=== PATIENT | female | born 2005 | race Two or more races ===

== ENCOUNTER 2025-04-01 17:01 | Emergency (ER) | payer OTHER, SELFPAY ==
[2025-04-01 17:13] VITALS: BP 119/81; PULSE 84; RESP 18; TEMP 37.4; O2SAT 100
[2025-04-01 17:26] LABS: EDUAAPPEAR Clear; EDUABILI Negative (Negative); EDUABLOOD Negative (Negative); EDUACOLOR1 Yellow; EDUAGLUCOSE Negative (Negative); EDUAKETONE Negative (Negative); EDUALEUKO Trace (Negative); EDUANITRATE Negative (Negative); EDUAPH 6.0; EDUAPROTEIN Negative (Negative); EDUASPGRAVITY 1.005; EDUAUROBILI 0.2
[2025-04-01 17:40] LABS: BEDSIDEPREGUCG Negative (Negative)
--- NOTE | 2025-04-01 17:42 | ED.ABDPAIN ---
HPI - Abdominal Pain General Chief Complaint: Abdominal Pain Stated Complaint: Side Pain Time Seen by Provider: 04/01/25 17:20 Source: patient and RN notes reviewed Mode of arrival: ambulatory Limitations: no limitations History of Present Illness HPI narrative: 19-year-old female presents Express Care complaining of right lower abdominal pain and fevers for approximately 5 days. Patient also reports nausea but no vomiting. Patient says she had a fever as high as 101 since been taken Tylenol and ibuprofen to help with the fevers. Patient denies any urinary symptoms, bloody urine, vaginal discharge, vaginal bleeding, pelvic pain, or any concerns for STDs. Patient says she has a history of appendectomy at the age of 7. Patient denies any chance of . Patient denies any cough or upper respiratory symptoms. Related Data Home Medications ?Medication ?Instructions ?Recorded ?Confirmed ?Last Taken ?Type No Home Medications 04/01/25 04/01/25 Unknown History Allergies Allergy/AdvReac Type Severity Reaction Status Date / Time No Known Allergies Allergy Verified 04/01/25 17:15 Review of Systems Review of Systems: CONSTITUTIONAL: Positive for fevers, negative for chills, or sweats. EYES: Denies visual changes, redness, or discharge. ENT: Denies rhinorrhea, congestion, sore throat, or otalgia. CARDIOVASCULAR: Denies chest pain, palpitations, or edema. RESPIRATORY: Denies cough or dyspnea. GASTROINTESTINAL: Positive for abdominal pain, nausea. Negative for vomiting, or diarrhea. GENITOURINARY: Denies dysuria, vaginal discharge, pelvic pain, vaginal bleeding, or hematuria. SKIN: Denies rash or itching. MUSCULOSKELETAL: Denies back pain, joint pain, or myalgia. NEUROLOGIC: Denies headache, numbness, or weakness. PSYCHIATRIC: Denies anxiety or depression. All other systems reviewed are negative, except as documented in HPI. PMFSH Comments At the time of my signature, I reviewed and agree with the nursing past medical, surgical, social, and family history. There is no relevant family history pertinent to the patient complaint. Exam Narrative: GENERAL: This is a well-nourished, well-developed adult, in no apparent distress. They are non ill-appearing, nontoxic appearing. HEAD: normocephalic, atraumatic. EYES: Sclera clear/white. Conjunctiva normal. Vision is grossly intact. Extraocular movements intact EARS: External ears normal. Hearing grossly intact. NOSE: External nose normal THROAT: Mucous membranes moist, Uvula midline. NECK: Neck supple, CARDIOVASCULAR: Regular rate and rhythm without murmurs, gallops, or rubs. RESPIRATORY: Clear to auscultation. Breath sounds equal bilaterally. No wheezes, rales, or rhonchi. GASTROINTESTINAL: Abdomen soft, tenderness to palpation to the right lower quadrant, nondistended. Bowel sounds are active. No hepato-splenomegaly, or palpable masses. No guarding or rigidity. No rebound tenderness. SKIN: warm, Dry, intact with no suspicious lesions or rash, good texture and turgor. NEURO: awake, alert, and oriented to person, place and time. There were no obvious focal neurologic abnormalities. EXTREMITIES: No joint tenderness, effusion, or edema noted. BACK: Nontender without deformity. No CVA tenderness. Course Course Emergency Course: Portions of this record may have been created with voice recognition software Level of Care: Express Care Visit Vital Signs Vital signs: Vital Signs Temperature 99.3 F 04/01/25 17:13 Pulse Rate 84 04/01/25 17:13 Respiratory Rate 18 04/01/25 17:13 Blood Pressure 119/81 04/01/25 17:13 Pulse Oximetry 100 04/01/25 17:13 Temperature 99.3 F 04/01/25 17:13 Pulse Rate 84 04/01/25 17:13 Respiratory Rate 18 04/01/25 17:13 Blood Pressure 119/81 04/01/25 17:13 Pulse Oximetry 100 04/01/25 17:13 Reviewed Transfer Transfered to: [facility] Transportation: Other (Private vehicle) Transfer rationale: Unexplained fevers, right lower abdominal pain, nausea, requiring higher level care Accepting physician: Dr. King MDM - Abdominal Pain MDM Narrative Medical decision making narrative: Patient may be having a rivas fever. Urine dipstick 1+ leukocytes however patient is having no urinary symptoms, no CVA tenderness, no suprapubic pain, no dysuria. Symptoms are not consistent with UTI. Urine test is negative. Patient has a history of an appendectomy. Given patient's symptoms, it is recommend the patient seek a higher level care and proceed immediately to the emergency department. Patient is agreeable [facility]. Called over to [facility] spoke to Dr. King who is wear this patient accepted the patient for transfer. Patient advised to remain NPO proceed immediately to the ER. Patient to go by POV with significant other. Patient hemodynamically stable for transfer. Differential Diagnosis Differential diagnosis: Likely diverticulitis and other (Ovarian cyst, ectopic , pelvic inflammatory disease, renal stone, pyelonephritis) Lab Data Attestation: I reviewed the patient's lab results. Labs: Lab Results 04/01/25 04/01/25 Range/Units 17:24 17:39 POC Urine Color Yellow POC Urine Clarity Clear POC Urine pH 6.0 POC Ur Specif [place] 1.005 POC Urine Protein Negative (Negative) POC Ur Glucose (UA) Negative (Negative) POC Urine Ketones Negative (Negative) POC Urine Blood Negative (Negative) POC Urine Nitrite Negative (Negative) POC Urine Bilirubin Negative (Negative) POC Urine Urobilinogen 0.2 POC U Leukocyte Esteras Trace (Negative) POC Urine HCG, Qual Negative (Negative) Critical Care Time Critical Care Time Critical Care Time: No Discharge Plan Discharge Clinical Impression: Right lower quadrant abdominal pain Fever Qualifiers: Fever type: unspecified Qualified Code(s): R50.9 - Fever, unspecified Patient Disposition: Acute Care Hospital Condition: Stable Patient Language: Haitian Prescriptions: No Action No Home Medications Follow-up/Referrals: PHYSICIAN,OILSEED MEAT PRESSER [Primary Care Provider] - Time of Disposition: 17:39
== END 2025-04-01 17:53 | disposition short-term general hospital (02) ==
DX: R10.31 Right lower quadrant pain (principal); R50.9 Fever, unspecified
CPT/HCPCS: 81003; 81025; 99212; G0463

== ENCOUNTER 2025-04-01 17:58 | Emergency (ER) | payer OTHER, SELFPAY ==
--- NOTE | ~2025-04-01 | CT_ITS ---
CT abdomen pelvis w con Ordering provider: Gian Styles MD History: 19 years Female with . RLQ PAIN . Comparison: None. Technique: CT abdomen and pelvis with IV and without oral contrast. Automated exposure control and it erative reconstruction technique were employed. The dose-length product was 178.02 mGy-cm. 100 mL Omn ipaque 350 was given IV. Findings: VISUALIZED LOWER CHEST: Normal. UPPER ABDOMINAL ORGANS: Liver: Normal. Gallbladder: Normal. Spleen: Normal. Stomach/duodenum: Normal. Pancreas: Normal. Adrenals: Normal. Kidneys: Hypodensity seen in the right kidney upper pole posteriorly and lower pole anteriorly which may indicate pyelonephritis. Slightly dilated right renal pelvicalyceal system with enhancement of the wall of the renal pelvis an d ureter suggestive of ascending infection. PELVIC ORGANS: The bladder is normal. Uterus: Normal. Right ovarian cyst measuring 1.7 cm. BOWEL AND MESENTERY: Colon: No evidence of diverticulitis. No evidence of appendicitis. Small Bowel: Normal. No obstruction. Peritoneum/mesentery: No free air or free fluid. No mesenteric lymphadenopathy. RETROPERITONEUM: Normal aorta. No retroperitoneal lymphadenopathy. MUSCULOSKELETAL: Superficial soft tissues: The superficial soft tissues are normal. Bones: Normal. Complex spine. IMPRESSION: 1. No evidence of appendicitis, diverticulitis or intestinal obstruction. 2. Ascending pyelonephritis seen on the right side. Clinical correlation and follow-up advised. 3. Right ovarian cyst measuring 2.7 cm. Reviewed, dictated and finalized at location A. IMPRESSION: 1. No evidence of appendicitis, diverticulitis or intestinal obstruction. 2. Ascending pyelonephritis seen on the right side. Clinical correlation and f ollow-up advised. 3. Right ovarian cyst measuring 2.7 cm.
[2025-04-01 18:06] VITALS: BP 110/75; PULSE 87; RESP 16; TEMP 37; O2SAT 100
[2025-04-01 20:40] VITALS: BP 119/85; PULSE 91; RESP 16; TEMP 36.6; O2SAT 100
[2025-04-01 20:51] LABS: Hematocrit 38.5 % (37.0-47.0); Hemoglobin 12.2 g/dL (12.0-15.0); Immature Granulocyte Percent A 0.4 % (0-0.5); Lymphocytes Absolute Auto 1.76 K/mm3 (0.9-3.2); Mean Corpuscular HGB Conc 31.7 g/dl (32-36); Mean Corpuscular Hemoglobin 28.0 pg (26-34); Mean Corpuscular Volume 88.5 fl (80-100); Nucleated Red Blood Cells Absolute Auto 0.000 K/mm3 (0.0-0.012); Nucleated Red Blood Cells Perc 0.0 % (0.0-0.2); Platelet Count Result 299 k/mm3 (150-375); Red Blood Count 4.35 M/mm3 (4.2-5.4); White Blood Count 10.8 K/mm3 (4.5-10.0)
[2025-04-01 20:59] LABS: SPREG INTERNAL CONTROL Positive; Serum Qual hCG Negative
[2025-04-01 21:03] LABS: Alanine Aminotransferase 16 U/L (6-35); Albumin Level 4.5 g/dL (3.5-5.1); Alkaline Phosphatase 51 U/L (38-126); Anion Gap 12 mmol/L (4-12); Aspartate Amino Transferase 33 U/L (14-36); Bilirubin,Total 0.4 mg/dL (0.2-1.3); Blood Urea Nitrogen 6 mg/dL (7-17); Calcium 9.2 mg/dL (8.4-10.2); Carbon Dioxide 25 mmol/L (22-30); Chloride 102 mmol/L (98-107); Estimated Glomerular Filt Rate > 60; Glucose 97 mg/dL (65-110); Lipase 144 U/L (23-300); Magnesium 2.2 mg/dL (1.6-2.3); Potassium 4.4 mmol/L (3.4-5.0); Sodium 139 mmol/L (137-145); Total Protein 8.9 g/dL (6.3-8.2)
--- NOTE | 2025-04-01 22:12 | ED.ABDPAIN ---
HPI - Abdominal Pain General Chief Complaint: Abdominal Pain Stated Complaint: r sided abd pain Time Seen by Provider: 04/01/25 22:05 Source: patient Mode of arrival: ambulatory Limitations: no limitations History of Present Illness HPI narrative: This is a 19-year-old female that presents to the emergency department for right mid abdominal pain. Ongoing over the last couple of days. No associated symptoms. Denies fevers, vomiting, diarrhea, dysuria, hematuria. Related Data Allergies Allergy/AdvReac Type Severity Reaction Status Date / Time No Known Allergies Allergy Verified 04/01/25 17:15 Review of Systems Review of Systems: All systems reviewed & are unremarkable except as noted in HPI and below PMFSH Surgical History Surgical History (Updated 04/01/25 @ 22:13 by Kaylee Mason PA-C) History of appendectomy Exam Narrative: GENERAL: Well-appearing, well-nourished, and in no acute distress. HEAD: Normocephalic, atraumatic. EYES: EOMI. CHEST: Clear to auscultation. No respiratory distress. No wheezes rales or rhonchi HEART: Regular rate and rhythm. No murmur heard. Normal peripheral pulses. ABDOMEN: Soft, nondistended, normal active bowel sounds. Mild tenderness to palpation in the right mid abdomen, without guarding EXTREMITIES: Normal range of motion. No edema. SKIN: Warm, dry, no rash. NEURO: No focal deficits. Alert and oriented x3. PSYCH: Normal mood and affect Course Course Emergency Course: patient updated on workup and agrees with plan of care Vital Signs Vital signs: Vital Signs Temperature 98.6 F 04/01/25 18:06 Pulse Rate 87 04/01/25 18:06 Respiratory Rate 16 04/01/25 18:06 Blood Pressure 110/75 04/01/25 18:06 Pulse Oximetry 100 04/01/25 18:06 Temperature 97.9 F 04/01/25 20:40 Pulse Rate 91 04/01/25 20:40 Respiratory Rate 16 04/01/25 20:40 Blood Pressure 119/85 04/01/25 20:40 Pulse Oximetry 100 04/01/25 20:40 MDM - Abdominal Pain MDM Narrative Medical decision making narrative: Patient presents the emergency department for right-sided abdominal pain. She is afebrile and nontoxic appearing. Her vitals are stable. CBC with mild leukocytosis to 10.8. Metabolic panel without concerning findings. Urine with evidence of infection. test is negative. CT abdomen and pelvis shows findings of pyelonephritis. Right ovarian cyst. Patient was updated on her workup and agrees with plan of care. Will be given 1st dose of antibiotics IV. Continued on oral antibiotics, she was given warnings to return to the ER Differential Diagnosis Differential diagnosis: Likely calculus of kidney, constipation, diverticulitis and other (pyelonephritis) Lab Data Attestation: I reviewed the patient's lab results. 04/01/25 20:44 04/01/25 20:44 Labs: Lab Results 04/01/25 04/01/25 04/01/25 Range/Units 20:44 22:16 22:32 WBC 10.8 H (4.5-10.0) K/mm3 RBC 4.35 (4.2-5.4) M/mm3 Hgb 12.2 (12.0-15.0) g/dL Hct 38.5 (37.0-47.0) % MCV 88.5 (80-100) fl MCH 28.0 (26-34) pg MCHC 31.7 L (32-36) g/dl RDW 12.2 (11.5-14.5) % Plt Count 299 (150-375) k/mm3 MPV 9.1 (7.4-10.4) fl Immature Gran % (Auto) 0.4 (0-0.5) % Neut % (Auto) 70.3 (45.5-73.1) % Lymph % (Auto) 16.3 L (18.3-44.2) % [place] % (Auto) 12.0 H (2.6-8.5) % Eos % (Auto) 0.5 (0-4.4) % Baso % (Auto) 0.5 (0.2-1.2) % Lymph # (Auto) 1.76 (0.9-3.2) K/mm3 [place] # (Auto) 1.3 H (0.1-0.6) K/mm3 Eos # (Auto) 0.1 (0-0.3) K/mm3 Baso # (Auto) 0.1 (0.0-0.1) K/mm3 Abs Immat Gran (auto) 0.04 H (0.00-0.031) K/mm3 Absolute Neuts (auto) 7.6 H (1.3-6.7) K/mm3 Absolute Nucleated RBC 0.000 (0.0-0.012) K/mm3 Nucleated RBC % 0.0 (0.0-0.2) % Sodium 139 (137-145) mmol/L Potassium 4.4 (3.4-5.0) mmol/L Chloride 102 (98-107) mmol/L Carbon Dioxide 25 (22-30) mmol/L Anion Gap 12 (4-12) mmol/L BUN 6 L (7-17) mg/dL Creatinine 0.57 L (0.7-1.0) mg/dL Estim Creat Clear Calc Not Reportable Estimated GFR > 60 (59 - ) Glucose 97 (65-110) mg/dL Calcium 9.2 (8.4-10.2) mg/dL Magnesium 2.2 (1.6-2.3) mg/dL Total Bilirubin 0.4 (0.2-1.3) mg/dL AST 33 (14-36) U/L ALT 16 (6-35) U/L Alkaline Phosphatase 51 (38-126) U/L Total Protein 8.9 H (6.3-8.2) g/dL Albumin 4.5 (3.5-5.1) g/dL Lipase 144 (23-300) U/L Serum HCG, Qual Negative Urine Color Yellow (Yellow) Urine Appearance Clear (Clear) Urine pH 5.5 (5.0-9.0) Ur Specific [place] > 1.045 H (1.001-1.035) Urine Protein 1+ H (Negative) mg/dL Urine Glucose (UA) Negative (Negative) mg/dL Urine Ketones Trace H (Negative) mg/dL Ur Blood (Man) Trace (Negative) Urine Nitrate Negative (Negative) Urine Bilirubin Negative (Negative) Urine Urobilinogen 0.2 (<2.0) mg/dL Add Ur Microanalysis Reviewed Leukocyte Esterase Rfl Negative (Negative) JUDY/UL Urine RBC 0-2 (0-2) /hpf Urine WBC 11-20 H (0-3) /hpf Ur Squamous Epith Cells Few (Few) /hpf Urine Bacteria None seen /hpf Urine Casts 0-2 POC Urine HCG, Qual Negative (Negative) Imaging Data Radiologist's impression: ITS Impressions Abdomen/Pelvis CT 04/01/25 22:42 IMPRESSION: 1. No evidence of appendicitis, diverticulitis or intestinal obstruction. 2. Ascending pyelonephritis seen on the right side. Clinical correlation and follow-up advised. 3. Right ovarian cyst measuring 2.7 cm. Critical Care Time Critical Care Time Critical Care Time: No Discharge Plan Discharge Clinical Impression: Pyelonephritis Ovarian cyst Qualifiers: Laterality: right Qualified Code(s): N83.201 - Unspecified ovarian cyst, right side Patient Disposition: Home Condition: Stable Instructions: Antibiotic Form, Ovarian Cyst (ED), Kidney Infection (ED) Additional Instructions: Return to the ER if you experience fever, abdominal pain with nausea and vomiting, you are unable to keep down liquids or solids, or any other symptoms that are concerning to you Remain well hydrated. Take oral antibiotics as prescribed Follow up with primary care doctor Patient Language: [place] Islander Prescriptions: New cefdinir 300 mg capsule 300 mg PO Q12H 10 Days Qty: 20 0RF Follow-up/Referrals: PHYSICIAN,GUEST SERVICE TEAM LEADER [Primary Care Provider] - Ky Wood MD [Physician] -
[2025-04-01 22:34] LABS: BEDSIDEPREGUCG Negative (Negative)
--- NOTE | 2025-04-01 22:38 | PC.NURSE ---
Pt presents to ED c/o 12/31 abdominal pain, and nausea, onset saturday. Pt states she took tramadol Saturday night and it helped. Pt ambulatory to bathroom for urine sample.
[2025-04-01 22:44] LABS: Add Urine Microscopic? YES; Appearance Urine Clear (Clear); Glucose Urine UA Negative (Negative); Leukocyte Esterase Ur Negative LEU/UL (Negative); Need Manual Microscopic Reviewed; Nitrate Urine Negative (Negative); Non Pathogenic Casts 0-2; Specific Grav Ur > 1.045 (1.001-1.035)
[2025-04-01] MEDS: SODIUM CHLORIDE 0.9% IV 1,000 ML 999 ML IV CONT (23:24)
[2025-04-01] MEDS: cefTRIAXone 1 GM in SODIUM CHLORIDE 0.9% IV 50 ML 100 ML IVPB (23:25)
[2025-04-01 23:30] VITALS: BP 112/79; PULSE 66; RESP 16; TEMP 36.8; O2SAT 100
== END 2025-04-02 00:15 | disposition home or self-care (01) ==
PROVIDERS: Emergency Medicine; Emergency Provider Physician Assistant
DX: N12 Tubulo-interstitial nephritis, not specified as acute or chronic (principal); N83.201 Unspecified ovarian cyst, right side
CPT/HCPCS: 36415; 74177; 80053; 81001; 81025; 83690; 83735; 84703; 85025; 96365; 99284; J0696; J7030; Q9967

== ENCOUNTER 2025-04-26 19:33 | Emergency (ER) | payer OTHER, SELFPAY ==
--- NOTE | 2025-04-26 19:38 | ED_ITS ---
HPI - Female Genitourinary General Chief complaint: Urogenital-Female Stated complaint: Uti Symptoms Time Seen by Provider: 04/26/25 19:43 Source: patient, RN notes reviewed and old records reviewed Mode of arrival: ambulatory Limitations: no limitations History of Present Illness HPI Narrative: 19-year-old female presents to the [facility] with concerns for a UTI Patient reports return of right lower abdominal discomfort, urgency, frequency and burning with urination 5 days ago. Patient was diagnosed with a pyelonephritis and ovarian cyst on April 01, has not followed up with primary care provider Related Data Allergies Allergy/AdvReac Type Severity Reaction Status Date / Time No Known Allergies Allergy Verified 04/01/25 17:15 Review of Systems Review of Systems: All systems reviewed & are unremarkable except as noted in HPI and below Constitutional: Constitutional: Reports no additional constitutional complaints Gastrointestinal: Gastrointestinal: Reports as per HPI Genitourinary: Genitourinary: Reports as per HPI Musculoskeletal: Musculoskeletal: Reports no additional musculoskeletal complaints Integumentary/Breasts: Skin/Breast: Reports system reviewed and no additional complaints, except as docu PMFSH Surgical History Surgical History History of appendectomy Comments At the time of my signature, I reviewed and agree with the nursing past medical, surgical, social, and family history. There is no relevant family history pertinent to the patient complaint. Exam Const: General: cooperative, healthy appearing, comfortable, no acute distress, well developed, alert and well nourished Nutritional Appearance: well nourished Orientation/consciousness: patient oriented x3 Limitations: no limitations HENMT: Head: normal to inspection Mouth: Yes Normal oral and palatal mucosa present, Yes lip normal, Yes tongue normal and Yes moist mucous membranes Eyes: General: appearance normal, both eyes and all related structures Alignment and Position: alignment normal Neck: Neck: normal visual inspection, full ROM, no lymphadenopathy and no meningeal signs Chest: Chest palpation & inspection: normal inspection of the chest Resp: Effort & Inspection: normal respiratory effort and able to speak in complete sentences Auscultation: clear to auscultation bilaterally, no crackles, no rales, no rhonchi and no wheezes Cardio: Rate: regular rate GI: GI Palp: No abdominal tenderness, Yes Soft to palpation and No Tenderness to palpation present (GI) : General: Yes no CVA tenderness Skin: General skin exam: normal color and no rashes or lesions noted Neuro: General: patient oriented x3, gait normal, moves all extremities and no meningeal signs Cognition (Neuro): normal cognition Speech: normal speech Gait exam (Neuro): Normal gait present Extrem: General: normal to inspection, full ROM, capillary refill normal and normal gait Psych: Appearance: grossly normal and well kempt Mental Status: mental status grossly normal Speech and movement: Normal speech and movement present and Clear speech present Affect: normal affect Attitude: cooperative Course Course Level of Care: Express Care Visit Vital Signs Vital signs: Vital Signs Temperature 99.2 F 04/26/25 19:40 Pulse Rate 77 04/26/25 19:40 Respiratory Rate 18 04/26/25 19:40 Blood Pressure 93/65 L 04/26/25 19:40 Pulse Oximetry 100 04/26/25 19:40 Oxygen Delivery Room Air 04/26/25 19:40 Temperature 99.2 F 04/26/25 19:40 Pulse Rate 77 04/26/25 19:40 Respiratory Rate 18 04/26/25 19:40 Blood Pressure 93/65 L 04/26/25 19:40 Pulse Oximetry 100 04/26/25 19:40 Oxygen Delivery Room Air 04/26/25 19:40 Reviewed MDM - Female Genitourinary MDM Narrative Medical decision making narrative: Patient sitting comfortably in exam room. Patient is nontoxic, vitals stable. Patient presents with concerns for UTI Patient with positive leukocytes, will culture, covering with antibiotic Augmentin Negative test Patient appropriate for outpatient treatment with close follow-up Discharge instructions reviewed with patient, as well as provided in writing per nursing staff. The instructions also include specific and strict return/GO TO THE ER as well as f/u information. All questions have been answered, and the patient deny any further questions with discharge and discharge plan. Some parts of this dictation were generated by voice recognition software and may contain typographical and/or grammatical inaccuracies. Differential Diagnosis Differential diagnosis: Likely urinary tract infection, cystitis and other (Ovarian cyst) Lab Data Labs: Lab Results 04/26/25 04/26/25 Range/Units 19:46 19:49 POC Urine Color Yellow POC Urine Clarity Cloudy POC Urine pH 7.0 POC Ur Specif [place] 1.015 POC Urine Protein 1+ (Negative) POC Ur Glucose (UA) Negative (Negative) POC Urine Ketones Negative (Negative) POC Urine Blood 2+ (Negative) POC Urine Nitrite Negative (Negative) POC Urine Bilirubin Negative (Negative) POC Urine Urobilinogen 0.2 POC U Leukocyte Esteras 3+ (Negative) POC Urine HCG, Qual Negative (Negative) Reviewed Critical Care Time Critical Care Time Critical Care Time: No Discharge Plan Discharge Clinical Impression: Urinary tract infection Qualifiers: Urinary tract infection type: acute cystitis Hematuria presence: with hematuria Qualified Code(s): N30.01 - Acute cystitis with hematuria Patient Disposition: Home Condition: Stable Instructions: Antibiotic Form, Urinary Tract Infection in Women (ED) Additional Instructions: Increased water intake Take Tylenol as needed for pain Take antibiotic as prescribed Today your urine dip showed a probability of a UTI. You have been prescribed an antibiotic. Your urine will be sent to our lab for a culture. If at that time a bacteria grows that is not covered by the antibiotic prescribed you will be notified. Follow-up with primary care or line department supervisor provider. For new or worsening symptoms go directly to the emergency room Patient Language: Mohawk Prescriptions: New amoxicillin-pot clavulanate 875-125 mg tablet 1 tablet PO Q12H Qty: 10 0RF Follow-up/Referrals: UNKNOWN,DOCTOR [Primary Care Provider] - Time of Disposition: 19:54
[2025-04-26 19:40] VITALS: BP 93/65; PULSE 77; RESP 18; TEMP 37.3; O2SAT 100
[2025-04-26 19:47] LABS: EDUAAPPEAR Cloudy; EDUABILI Negative (Negative); EDUABLOOD 2+ (Negative); EDUACOLOR1 Yellow; EDUAGLUCOSE Negative (Negative); EDUAKETONE Negative (Negative); EDUALEUKO 3+ (Negative); EDUANITRATE Negative (Negative); EDUAPH 7.0; EDUAPROTEIN 1+ (Negative); EDUASPGRAVITY 1.015; EDUAUROBILI 0.2
[2025-04-26 19:50] LABS: BEDSIDEPREGUCG Negative (Negative)
== END 2025-04-26 19:57 | disposition home or self-care (01) ==
PROVIDERS: Emergency Provider Nurse Practitioner
DX: N30.01 Acute cystitis with hematuria (principal)
CPT/HCPCS: 81003; 81025; 87086; 99213; G0463